=== PATIENT | male | born 1980 | race Caucasian/White ===

== ENCOUNTER 2024-07-24 17:12 | Emergency (ER) | payer BC, SELFPAY ==
[2024-07-24 17:22] VITALS: BP 113/91
[2024-07-24] MEDS: AUGMENTIN 875 MG/125 MG 1 TABLET PO (18:34)
--- NOTE | 2024-07-24 18:43 | ED.SKININJ ---
HPI-Injury
General
Chief Complaint: Bite
Time Seen by Provider: 07/24/24 17:50
History of Present Illness-Injury
Initial Injury comments:
44-year-old male with history of anxiety presenting to the emergency department for dog bite. Patient recently adopted a dog, and dog got scared by a loud noise today, jumped up and caught patient's upper lip with tooth. Patient suffered
laceration to lip. He notes that dog's vaccinations are up-to-date and patient himself is up-to-date with tetanus. He denies any additional injuries, does have a scratch to the nose. Denies additional acute medical complaints
Phy Exam
Physical Exam
Physical Exam:
General: Well-appearing, no clinical signs of dehydration, nontoxic and in no acute distress
HEENT: protecting airway. Upper lip gaping laceration, bleeding controlled. Not through and through. Abrasion to the upper lip and nose
Neck: appears supple
CV: Normal heart rate
Resp: No accessory muscle use
Abd: no distension
Extremities: No deformities, no swelling
Neuro: alert, no focal neurologic deficit
: deferred
Rectal: deferred
Psych: Normal affect
Skin: Intact
Course
Orders/Labs/Results
Orders:
Orders
07/24/24 18:30
Amoxicillin 875 mg/Clav 125 mg [Augmentin 875 mg/125 mg] 1 tablet PO NOW STA
Vital Signs
Initial and Last Documented VS:
Initial Vital Signs
Temp Pulse Resp BP Pulse Ox
98.4 F 74 16 113/91 98
07/24/24 17:22 07/24/24 17:22 07/24/24 17:22 07/24/24 17:22 07/24/24 17:22
Last Documented Vital Signs
Temp Pulse Resp BP Pulse Ox
98.4 F 74 16 113/91 98
07/24/24 17:22 07/24/24 17:22 07/24/24 17:22 07/24/24 17:22 07/24/24 17:22
MDM/Problems Addressed
MDM/Problems Addressed:
44-year-old male presenting after a dog bite with lip laceration. Vital signs on arrival are normal.
On exam patient is resting comfortably, no acute distress or discomfort. Patient has deep laceration to the upper lip, however not through and through. No signs of infection or retained foreign bodies. Wound was irrigated. No other additional
significant wounds. Dog's vaccinations and patient's vaccinations up-to-date. No indication for tetanus or rabies series. Will start patient on Augmentin. Given gaping nature of wound, repaired with absorbable sutures. Please see procedure
note. Feel stable for discharge. Return precautions discussed. Patient verbalized understanding.
*Critical Care Note
Total Time (30-74mins, 75-104mins- exclusive of procedures): Not Applicable
ED Attending Note
-
Portions of this chart may have been created with voice recognition software.� Occasional wrong word or��sound alike� substitutions may have occurred due to the inherent limitations of voice recognition software.
Discharge Plan
Departure
Patient Disposition: Home (Routine Discharge)
Date of Disposition: 07/24/24
Time of Disposition: 18:54
Patient with high blood pressure during this ER visit?: No
Condition: Good
Discharge Problem:
Dog bite of face, Laceration of lip
Instructions: Animal Bites (DC), Wound Care (DC)
Prescriptions:
New
amoxicillin-pot clavulanate 875-125 mg tablet
1 tab PO BID 7 Days Qty: 14 0RF
Referrals:
Case Marina MD [Family Provider] -
Activity Restrictions/Additional Instructions:
You were seen in the emergency department for a dog bite
You were found to have a laceration to your upper lip which required suture repair. You had absorbable sutures placed, 4. Please take antibiotics as directed. Return with any increased swelling, redness, or abnormal drainage, which is concerning
for infection
Please follow-up closely with your primary care physician.
Return to the emergency department for any worsening of your symptoms, or any development of chest pain, difficulty breathing, abdominal pain with persistent vomiting and inability to tolerate food or liquid by mouth (concern for dehydration),
weakness, headache or confusion, fever greater than 100.4, or any additional symptoms that are concerning to you.
Thank you for choosing [facility].
Interventions
Interventions:
*Risk Screen - Suicide Last Done: 07/24/24 17:24
*General Assessment Last Done: 07/24/24 17:22
*Neglect/Abuse Screening Last Done: 07/24/24 17:22
*ED COVID-19 Vaccine History Last Done: 07/24/24 17:33
ED-Skin Assessment Last Done: 07/24/24 17:33
Discharge Date and Time
Print Language: MAORI
== END 2024-07-24 19:01 | disposition home or self-care (01) ==
LOC: EMR 17:12
PROVIDERS: EMERGENCY PHYSICIAN Student in an Organized Health Care Education/Training Program; FAMILY PHYSICIAN Family Medicine
DX: S01.551A Open bite of lip, initial encounter (principal); W54.0XXA Bitten by dog, initial encounter
CPT/HCPCS: 99282; 12011